=== PATIENT | male | born 1940 | race Caucasian/White ===

== ENCOUNTER 2022-04-16 10:57 | Emergency (ER) | payer MEDICARE, OTHER ==
[~2022-04-16 10:57] MED LIST: Iopamidol 300 61% 100 ML VIAL FS ONE
[2022-04-16] MEDS ORDERED: Boostrix 0.5 ML (Tdap) VIAL ONE (11:53)
[2022-04-16 11:55] LABS: ALT (SGPT) 59 U/L (8-55); AST (SGOT) 54 U/L (5-34); Albumin 3.8 g/dL (3.4-4.8); Alkaline Phosphatase 53 U/L (40-110); Anion Gap 14 mmol/L (10-20); BUN (Urea Nitrogen) 51 mg/dL (8.4-25.7); CK (CPK) 604 U/L (30-200); Calc. Creatinine Clearance 0 mL/min (70-130); Calcium 9.4 mg/dL (7.8-10.44); Carbon Dioxide 26 mmol/L (23-31); Chloride 102 mmol/L (98-107); Globulin 2.9 g/dL (2.4-3.5); Glucose 115 mg/dL (83-110); Lipase 48 U/L (8-78); Potassium 3.8 mmol/L (3.5-5.1); Protein, Total 6.7 g/dL (5.8-8.1); Sodium 138 mmol/L (136-145)
[2022-04-16 12:02] LABS: #Eosinphils 0.1 10x3/uL (0.0-0.5); #Monocytes 0.7 10x3/uL (0.0-1.1); #Neutrophils 5.3 10x3/uL (1.5-8.4); %Basophils 0.5 % (0.0-2.0); %Eosinophils 1.5 % (0.0-6.0); %Lymphocytes 23.8 % (18.0-47.0); %Monocytes 8.9 % (0.0-10.0); %Neutrophils 65.1 % (40.0-75.0); Hemoglobin 13.8 g/dL (13.5-17.5); Mean Corpuscular HGB CONC 35.7 g/dL (32.0-36.0); Mean Corpuscular Hemoglobin 33.7 pg (27.0-33.0); Mean Corpuscular Volume 94.4 fl (81.2-95.1); Mean Platelet Volume 10.2 fl (7.4-10.4); Platelet Count 137 10x3/uL (150-450); RBC Distribution Width 12.8 % (11.5-14.5); White Blood Cell (WBC) Count 8.2 10x3/uL (3.5-10.5)
[2022-04-16 12:07] LABS: INR-International Normal Ratio 1.4; PTT 25.9 sec (22.0-33.0); Prothrombin Time 15.4 sec (9.5-12.1)
[2022-04-16] MEDS ORDERED: Phytonadione 10 MG/ML AMP ONE (12:22)
[2022-04-16] MEDS ORDERED: ADMIXTURE FEE IV SCH (12:30)
[2022-04-16] MEDS ORDERED: HUMAN PROTHROMBIN COMPLX IV SCH (12:30)
[2022-04-16 14:03] LABS: SARS-CoV-2 NAA Rapid Test Not Detected (NotDetected)
== END 2022-04-16 13:52 | disposition short-term general hospital (02) ==
LOC: CSHERS 10:57
DX: S06.5X0A Traumatic subdural hemorrhage without loss of consciousness, initial encounter (principal); Z20.822 Contact with and (suspected) exposure to COVID-19; W19.XXXA Unspecified fall, initial encounter
CPT/HCPCS: 70450; 71045; 71260; 74177; 82550; 83690; 84484; 85610; 85730; 90715; 93005; J7168; U0002; 80053; 84443; 85025; 90471; 96374; 96375; J3430; Q9967

== ENCOUNTER 2022-10-09 20:20 | Inpatient (IN) | payer MEDICARE, OTHER ==
[2022-10-09 21:10] LABS: #Eosinphils 0.1 10x3/uL (0.0-0.5); #Monocytes 0.5 10x3/uL (0.0-1.1); #Neutrophils 5.3 10x3/uL (1.5-8.4); %Basophils 0.4 % (0.0-2.0); %Eosinophils 1.3 % (0.0-6.0); %Lymphocytes 22.6 % (18.0-47.0); %Monocytes 5.9 % (0.0-10.0); %Neutrophils 69.5 % (40.0-75.0); Hemoglobin 14.3 g/dL (13.5-17.5); Mean Corpuscular HGB CONC 35.1 g/dL (32.0-36.0); Mean Corpuscular Hemoglobin 33.2 pg (27.0-33.0); Mean Corpuscular Volume 94.4 fl (81.2-95.1); Mean Platelet Volume 9.9 fl (7.4-10.4); Platelet Count 140 10x3/uL (150-450); RBC Distribution Width 13.2 % (11.5-14.5); Red Blood Cell (RBC) Count 4.31 10x6/uL (4.32-5.72); White Blood Cell (WBC) Count 7.6 10x3/uL (3.5-10.5)
[2022-10-09 21:13] LABS: Prothrombin Time 10.9 sec (9.5-12.1)
[2022-10-09 21:26] LABS: ALT (SGPT) 24 U/L (8-55); AST (SGOT) 20 U/L (5-34); Alkaline Phosphatase 57 U/L (40-110); Anion Gap 15 mmol/L (10-20); BUN (Urea Nitrogen) 27 mg/dL (8.4-25.7); Bilirubin, Total 0.6 mg/dL (0.2-1.2); Calc. Creatinine Clearance 0 mL/min (70-130); Calcium 9.3 mg/dL (7.8-10.44); Carbon Dioxide 22 mmol/L (23-31); Chloride 106 mmol/L (98-107); Estimated GFR 84; Globulin 3.2 g/dL (2.4-3.5); Glucose 136 mg/dL (83-110); Potassium 3.8 mmol/L (3.5-5.1); Protein, Total 7.2 g/dL (5.8-8.1); Sodium 139 mmol/L (136-145)
[2022-10-09] MEDS ORDERED: Senokot S 8.6-50 MG TAB PO PRN (23:04)
[2022-10-09] MEDS ORDERED: Calcium Carbonate 500 MG ChewTAB PO PRN (23:04)
[2022-10-09] MEDS ORDERED: Ondansetron PF 4 MG/2 ML Vial IVP PRN (23:04)
[2022-10-09] MEDS ORDERED: Acetaminophen 325 MG TAB PO PRN (23:04)
[2022-10-09] MEDS ORDERED: Zolpidem Tartrate 5 MG TAB PO PRN (23:04)
[2022-10-09] MEDS ORDERED: Guaifenesin DM 100-10/5 ML UDCUP PO PRN (23:04)
[2022-10-09] MEDS ORDERED: Apixaban 5 MG TAB PO SCH (23:15)
[2022-10-09] MEDS ORDERED: Apixaban 5 MG TAB ONE (23:27)
[2022-10-09] MEDS ORDERED: Lactated Ringer's 1,000 ML IV SCH (23:30)
[2022-10-10 03:48] LABS: Anion Gap 14 mmol/L (10-20); BUN (Urea Nitrogen) 22 mg/dL (8.4-25.7); Calc. Creatinine Clearance 0 mL/min (70-130); Calcium 9.1 mg/dL (7.8-10.44); Carbon Dioxide 23 mmol/L (23-31); Cardiac Risk 3.2 (Less than 4.5); Chloride 108 mmol/L (98-107); Cholesterol 155 mg/dl (< 200 Desired); Estimated GFR 87; Glucose 120 mg/dL (83-110); HDL Cholesterol 48 mg/dL (>60 Neg Risk); LDL Cholesterol, Calculated 97 mg/dL; Magnesium 1.9 mg/dL (1.6-2.6); Potassium 4.5 mmol/L (3.5-5.1); Sodium 140 mmol/L (136-145); Triglycerides 49 mg/dL (Less than 150)
[2022-10-10] MEDS ORDERED: Calcium Carbonate 600 MG + Vit D TAB PO SCH (08:00)
[2022-10-10] MEDS ORDERED: Metoprolol Tartrate 25 MG TAB ONE (08:15)
[2022-10-10] MEDS ORDERED: Apixaban 5 MG TAB ONE (08:15)
[2022-10-10] MEDS ORDERED: Apixaban 5 MG TAB PO SCH (09:00)
[2022-10-10 11:56] LABS: Hemoglobin A1c 5.5 % (4.0-6.0)
[2022-10-10 14:59] VITALS: BP 145/73
[2022-10-10] MEDS ORDERED: Atorvastatin Calcium 20 MG TAB PO SCH (21:00)
== END 2022-10-10 18:19 | disposition left against medical advice (07) | DRG 69 ==
LOC: CSHERS 20:20 → CSHERHOLD 22:59
PROVIDERS: ADMIT Student in an Organized Health Care Education/Training Program; ATTEND Nurse Practitioner Family
DX: G45.9 Transient cerebral ischemic attack, unspecified (principal); D68.2 Hereditary deficiency of other clotting factors; I48.19 Other persistent atrial fibrillation; R42 Dizziness and giddiness; I10 Essential (primary) hypertension; R26.9 Unspecified abnormalities of gait and mobility; M88.9 Osteitis deformans of unspecified bone; R94.31 Abnormal electrocardiogram [ECG] [EKG]; I73.9 Peripheral vascular disease, unspecified; E78.5 Hyperlipidemia, unspecified; R79.89 Other specified abnormal findings of blood chemistry; Z98.890 Other specified postprocedural states; Z90.49 Acquired absence of other specified parts of digestive tract; Z79.01 Long term (current) use of anticoagulants; Z86.718 Personal history of other venous thrombosis and embolism; Z82.3 Family history of stroke; Z20.822 Contact with and (suspected) exposure to COVID-19
CPT/HCPCS: 36415; 70450; 70544; 80048; 80053; 80061; 83036; 83735; 84443; 85025; 85610; 93005; 93010; 93880; J7120